=== PATIENT | male | born 1950 | race Caucasian/White ===

== ENCOUNTER 2020-05-07 07:24 | Inpatient (IN) ==
[2020-05-07] MEDS ORDERED: OPTIRAY 320 125ml IV PRN (07:41)
[2020-05-07] MEDS ORDERED: SODIUM CHLORIDE 0.9% 1000ML 1,000 ML IV SCH (07:45)
--- NOTE | 2020-05-07 07:53 | CT Scan Report ---
CT OF THE HEAD WITHOUT CONTRAST CLINICAL HISTORY: stroke alert COMPARISON STUDY: No previous studies for comparison. CT DOSE: 537.48 mGy.cm TECHNIQUE: Helical axial images of the head were obtained without IV contrast. Automated exposure con trol was utilized for the study. A dose lowering technique was utilized adhering to the principles o f ALARA. FINDINGS: No acute intracranial hemorrhage, midline shift or mass effect is present. The ventricular system is unremarkable. Note is made of a 1.6 cm hypodensity within the right internal capsule extend ing into the caudate nucleus. The basilar cisterns are patent. No extra-axial collections are present . There are no findings to suggest acute dural sinus thrombosis or acute territorial infarct. No sign ificant calvarial abnormalities are present. Visualized portions of the sinuses and mastoid air cells are clear. IMPRESSION: 1. No acute intracranial hemorrhage or mass effect. 2. 1.6 cm hypodensity within the right internal capsule extending into the caudate nucleus. This sugg ests an age indeterminate infarct. ACT 112: Negative or not required by law. Electronically signed by: Hong Kim M.D. 05/07/2020 7:51 AM
--- NOTE | 2020-05-07 07:58 | CT Scan Report ---
CTA ANGIOGRAPHY OF THE HEAD CLINICAL HISTORY: Stroke evaluation COMPARISON STUDY: No previous studies for comparison. TECHNIQUE: Helical axial images of the head were obtained following uneventful intravenous administr ation of Optiray 320. Sagittal and coronal reconstructions were viewed as well as maximal intensity p rojections on an independent 3-D workstation. Automated exposure control was utilized for the study. A dose lowering technique was utilized adhering to the principles of ALARA. CT DOSE: 580.85 mGy.cm FINDINGS: Please note that the CTA of the neck will be reported separately. No acute intracranial hem orrhage, midline shift or mass effect is present. Ventricular system is normal. The basilar cisterns are patent. There is an indeterminate 1.7 cm infarct within the right internal capsule extending into the caudate nucleus. The bilateral M1, M2, A1 and A2 segments are patent. The posterior circulation is intact. There is no intraluminal thrombus or abrupt vessel cutoff. There is no intracranial aneury sm. There is no dissection within the intracranial vessels. There is mild plaque within the bilateral cavernous carotids. IMPRESSION: 1. No intraluminal thrombus or abrupt vessel cutoff. No significant stenosis within the intracranial vessels. 2. Age indeterminate 1.7 cm infarct within the right internal capsule extending into the caudate nucl eus. ACT 112: Negative or not required by law. Electronically signed by: Hong Kim M.D. 05/07/2020 7:57 AM
--- NOTE | 2020-05-07 08:00 | CT Scan Report ---
CT angio neck with con CLINICAL HISTORY: 70 years-old Male with Stroke evaluation. Acute strokelike symptoms COMPARISON STUDY: CT head and CTA head of same day TECHNIQUE: Following the IV administration of Optiray 320, CT angiogram of the neck was performed fro m the aortic arch to the skull base. Images are reviewed in the axial, sagittal, and coronal planes. 3-D MIPS images are created and assessed. IV contrast was administered without complication. All nitish urements were calculated based on NASCET criteria. A dose lowering technique was utilized adhering t o the principles of ALARA. FINDINGS: The imaged opacified pulmonary artery is unremarkable. Mild to moderate mixed plaque the thoracic aor tic arch and proximal great vessels. The imaged portions of the bilateral subclavian arteries are pat ent. The innominate and common carotid arteries are also patent. Study is motion degraded which limit s the exam. Mild mixed plaque of the carotid bulbs and proximal internal carotid arteries results in less than 50% stenosis bilaterally. There is tortuosity noted involving the bilateral cervical segmen ts of the internal carotid arteries. The vertebral arteries are codominant. No aneurysm, dissection, high-grade stenosis or proximal branch occlusion. Mild multifocal luminal narrowing involves the vert ebral arteries. Lung apices are clear without pneumothorax. Soft tissues are unremarkable. Streak artifact from denta l amalgam hardware in its evaluation of the adjacent tissues. Multilevel degenerative changes of the cervical spine. No acute fracture. A large periapical cyst involves the right mandibular lateral inci sor and canine. IMPRESSION:Mildly motion degraded exam. CTA of the neck is unremarkable without aneurysm, dissection, high-grade stenosis or proximal branch occlusion. ACT 112: Negative or not required by law. The above report was generated using voice recognition software. It may contain grammatical, syntax o r spelling errors. Electronically signed by: Tanner Holland M.D. 05/07/2020 7:59 AM
[2020-05-07] MEDS ORDERED: ASPIRIN CHEW 324 MG PO STA (08:07)
[2020-05-07] MEDS ORDERED: CLOPIDOGREL BISULFATE 300 MG TAB PO STA (08:07)
[2020-05-07] MEDS ORDERED: ATORVASTATIN 10 MG TAB PO ONE (08:07)
[2020-05-07 08:17] LABS: Basophils # (auto) 0.02 K/uL (0-0.2); Basophils % (auto) 0.3 %; Eosinophils # (auto) 0.15 K/uL (0-0.5); Eosinophils % (auto) 2.1 %; Hematocrit (blood only) 42.9 % (42-52); Hemoglobin 14.5 g/dL (14.0-18.0); Immature Granulocytes # (auto) 0.02 K/uL (0.00-0.02); Immature Granulocytes % (auto) 0.3 %; Lymphocytes # (auto) 1.45 K/uL (1.2-3.4); Lymphocytes % (auto) 19.8 %; Mean Corpuscular Hgb Conc 33.8 g/dL (32-36); Mean Corpuscular Volume 88.6 fL (80-100); Mean Platelet Volume 9.9 fL (7.4-10.4); Monocytes # (auto) 0.49 K/uL (0.11-0.59); Monocytes % (auto) 6.7 %; Neutrophils # (auto) 5.18 K/uL (1.4-6.5); Neutrophils % (auto) 70.8 %; Platelet Count 303 K/uL (130-400); RDW Coefficient of Variation 13.1 % (11.5-14.5); RDW Standard Deviation 42.6 fL (36.4-46.3); Red Blood Count 4.84 M/uL (4.7-6.1); White Blood Count 7.31 K/uL (4.8-10.8)
--- NOTE | 2020-05-07 08:24 | Emergency Department Note ---
History of Present Illness General Chief complaint: Stroke Alert Stated complaint: TROUBLE TALKING AND SMILING,HEADACHES Time Seen by Provider: 05/07/20 07:37 Source: patient and RN notes reviewed Mode of arrival: ambulatory Limitations: no limitations History of Present Illness Provider complaint: Facial droop, speech difficulty, LUE weakness This pt is a 70 yo male who presents to the emergency department with complaints of strokelike symptoms. Patient states he went to bed at 8 PM last night and woke up to the Opiatalk at 930. At 2 AM, the patient woke up with the realization that his right arm was "floppy and hanging over the side of the bed." The patient went back to bed at that time. He woke up this morning at approximately 7 AM with the realization that the left side of the face was flattened and he had some subtle speech difficulty. Patient denies any medical history of stroke but states he does take lisinopril daily. He recently moved to the area from [place] in December. Patient does admit to a recent "sinus infection" that he has been attempting to treat for the last several weeks with [id number] remedies. When the patient woke up at 2 AM, he also noticed that his sinus symptoms had resolved. He denies any fevers, chills, headache, visual changes, chest pain or shortness of breath. Home Medications Home Medications Medication Instructions Recorded Confirmed Type cholecalciferol (vitamin D3) 50 mcg PO Q OTHER DAY 05/07/20 05/07/20 History [Vitamin D3] ibuprofen [Advil] 200 mg PO Q6H PRN 05/07/20 05/07/20 History lisinopril 5 mg PO QAM 05/07/20 05/07/20 History Allergies Allergy/AdvReac Type Severity Reaction Status Date / Time No Known Allergies Allergy Unverified 05/07/20 08:27 Past Med/Surg History Medical History Hypertension Social History Preferred Language: Occitan Communication Ability: Effective Environmental Specialist Required: No Beliefs That Will Affect Care: None Current Living Situation: Spouse current occupational status: retired Other Information That Helps Us Care for You: No Feels Safe at Home: Yes Safety Concerns: Feels Safe At This Time Smoking Status: Former smoker Hx Alcohol Use: Yes Alcohol type: wine Alcohol type Comment: 2 glasses Alcohol Intake Frequency: Daily Hx Substance Use: No Review of Systems See HPI for pertinent positives & negatives. and A total of 10 systems reviewed and were otherwise negative Physical Exam Vital Signs Vital Signs - 24 hr 05/07/20 07:30 05/07/20 08:00 05/07/20 08:32 Temperature 36.8 C Temperature Source Oral Pulse Rate 84 Pulse Rate [Apical] 90 79 Respiratory Rate 18 18 18 Blood Pressure 142/89 H Blood Pressure [Left Arm] 162/83 H 158/88 H Blood Pressure Mean 106 Blood Pressure Mean [Left Arm] 109 111 Pulse Oximetry 98 99 98 Oxygen Delivery Method Room Air Room Air Room Air Sepsis Recent Fever Within 48 Hours No Sepsis New/Unexplained Change in Mental Status No Sepsis Action Taken by Nursing No Action Required 05/07/20 09:06 Temperature Temperature Source Pulse Rate Pulse Rate [Apical] 91 H Respiratory Rate 18 Blood Pressure Blood Pressure [Left Arm] 156/84 H Blood Pressure Mean Blood Pressure Mean [Left Arm] 108 Pulse Oximetry 99 Oxygen Delivery Method Room Air Sepsis Recent Fever Within 48 Hours Sepsis New/Unexplained Change in Mental Status Sepsis Action Taken by Nursing Vital signs reviewed. General: Well-appearing 70-year-old male, in no significant distress. HEENT: No scleral icterus, PERRLA, neck supple. Atraumatic. Cardiovascular: Regular rate and rhythm, no extra sounds. Pulmonary: Clear to auscultation bilaterally, normal work of breathing. Abdomen: Soft, nontender, nondistended, positive bowel sounds. Musculoskeletal: Atraumatic, no peripheral edema. Neurologic: Patient awake alert and oriented x 3, full strength in all 4 extremities. Very subtle flattening of the left nasolabial fold and left eye. Intact [id number], no pronator drift Skin: Warm, dry, no rash Course Administered Medications Sodium Chloride (Nss 1000ml) 1,000 mls @ 50 mls/hr IV .Q20H TAMIKO Stop: 06/06/20 07:44 Last Admin: 05/07/20 08:03 Dose: 50 mls/hr Documented by: [id number] Ioversol (Optiray 320 125ml) 120 ml IV ONCE PRN PRN Reason: Interaction Checking Stop: 05/11/20 07:40 Last Admin: 05/07/20 07:42 Dose: 120 ml Documented by: [id number] Discontinued Medications Aspirin (Aspirin) 324 mg PO NOW STA Stop: 05/07/20 08:08 Last Admin: 05/07/20 08:14 Dose: 324 mg Documented by: [id number] Atorvastatin Calcium (Lipitor) 10 mg PO NOW ONE Stop: 05/07/20 08:08 Last Admin: 05/07/20 08:20 Dose: 10 mg Documented by: [id number] Clopidogrel Bisulfate (Plavix) 300 mg PO NOW STA Stop: 05/07/20 08:08 Last Admin: 05/07/20 08:14 Dose: 300 mg Documented by: [id number] Medical Decision Making Differential Diagnosis Differential includes acute coronary syndrome, myocardial infarction, CVA, TIA, anemia, infection, pneumonia, UTI, pyelonephritis, poor nutrition, dehydration, electrolyte disturbance,hypoglycemia. Home Medications Current Medication List: was personally reviewed by me Laboratory Data Attestation: I reviewed the patient's lab results. Result diagrams: 05/07/20 08:08 05/07/20 08:08 Lab Results 05/07/20 05/07/20 05/07/20 Range/Units 08:08 08:08 08:08 WBC 7.31 (4.8-10.8) K/uL RBC 4.84 (4.7-6.1) M/uL Hgb 14.5 (14.0-18.0) g/dL Hct 42.9 (42-52) % MCV 88.6 (80-100) fL MCH 30.0 (25-34) pg MCHC 33.8 (32-36) g/dL RDW Std Deviation 42.6 (36.4-46.3) fL RDW Coeff of Annemarie 13.1 (11.5-14.5) % Plt Count 303 (130-400) K/uL MPV 9.9 (7.4-10.4) fL Immature Gran % (Auto) 0.3 % Neut % (Auto) 70.8 % Lymph % (Auto) 19.8 % Richardson % (Auto) 6.7 % Eos % (Auto) 2.1 % Baso % (Auto) 0.3 % Neut # (Auto) 5.18 (1.4-6.5) K/uL Lymph # (Auto) 1.45 (1.2-3.4) K/uL Richardson # (Auto) 0.49 (0.11-0.59) K/uL Eos # (Auto) 0.15 (0-0.5) K/uL Baso # (Auto) 0.02 (0-0.2) K/uL Immature Gran # (Auto) 0.02 (0.00-0.02) K/uL PT 11.4 (9.0-12.0) Seconds INR 1.1 (0.9-1.1) APTT 34.4 H (21.0-31.0) Seconds PTT Ratio 1.2 Sodium 134 L (136-145) mmol/L Potassium 4.2 (3.5-5.1) mmol/L Chloride 103 (98-107) mmol/L Carbon Dioxide 24 (21-32) mmol/L Anion Gap 7.0 (3-11) BUN 15 (7-18) mg/dl Creatinine 1.09 (0.6-1.4) mg/dl Est Cr Clr Drug Dosing 59.8 ml/min Est GFR ( Amer) 79.8 Est GFR (Non-Af Amer) 68.9 BUN/Creatinine Ratio 14.0 (10-20) Glucose 110 H (70-99) mg/dl Calcium 9.1 (8.5-10.1) mg/dl Magnesium 2.1 (1.8-2.4) mg/dl Total Bilirubin 0.5 (0.2-1) mg/dl AST 12 L (15-37) U/L ALT 18 (12-78) U/L Alkaline Phosphatase 87 (45-117) U/L Troponin I < 0.015 (0-0.045) ng/ml Total Protein 7.2 (6.4-8.2) gm/dl Albumin 3.4 (3.4-5.0) gm/dl Globulin 3.8 (2.5-4.0) gm/dl Albumin/Globulin Ratio 0.9 (0.9-2) Triglycerides (0-150) mg/dl Cholesterol (0-200) mg/dl LDL Cholesterol, Calc mg/dl VLDL Cholesterol, Calc mg/dl HDL Cholesterol mg/dl Cholesterol/HDL Ratio TSH (0.300-4.500) uIu/ml COVID-19 PCR (Negative) 05/07/20 05/07/20 Range/Units 08:08 08:45 WBC (4.8-10.8) K/uL RBC (4.7-6.1) M/uL Hgb (14.0-18.0) g/dL Hct (42-52) % MCV (80-100) fL MCH (25-34) pg MCHC (32-36) g/dL RDW Std Deviation (36.4-46.3) fL RDW Coeff of Annemarie (11.5-14.5) % Plt Count (130-400) K/uL MPV (7.4-10.4) fL Immature Gran % (Auto) % Neut % (Auto) % Lymph % (Auto) % Richardson % (Auto) % Eos % (Auto) % Baso % (Auto) % Neut # (Auto) (1.4-6.5) K/uL Lymph # (Auto) (1.2-3.4) K/uL Richardson # (Auto) (0.11-0.59) K/uL Eos # (Auto) (0-0.5) K/uL Baso # (Auto) (0-0.2) K/uL Immature Gran # (Auto) (0.00-0.02) K/uL PT (9.0-12.0) Seconds INR (0.9-1.1) APTT (21.0-31.0) Seconds PTT Ratio Sodium (136-145) mmol/L Potassium (3.5-5.1) mmol/L Chloride (98-107) mmol/L Carbon Dioxide (21-32) mmol/L Anion Gap (3-11) BUN (7-18) mg/dl Creatinine (0.6-1.4) mg/dl Est Cr Clr Drug Dosing ml/min Est GFR ( Amer) Est GFR (Non-Af Amer) BUN/Creatinine Ratio (10-20) Glucose (70-99) mg/dl Calcium (8.5-10.1) mg/dl Magnesium (1.8-2.4) mg/dl Total Bilirubin (0.2-1) mg/dl AST (15-37) U/L ALT (12-78) U/L Alkaline Phosphatase (45-117) U/L Troponin I (0-0.045) ng/ml Total Protein (6.4-8.2) gm/dl Albumin (3.4-5.0) gm/dl Globulin (2.5-4.0) gm/dl Albumin/Globulin Ratio (0.9-2) Triglycerides 92 (0-150) mg/dl Cholesterol 166 (0-200) mg/dl LDL Cholesterol, Calc 99 mg/dl VLDL Cholesterol, Calc 18 mg/dl HDL Cholesterol 49 mg/dl Cholesterol/HDL Ratio 3 TSH 1.430 (0.300-4.500) uIu/ml COVID-19 PCR NEGATIVE (Negative) Imaging Data Radiologist's Impression: CT OF THE HEAD WITHOUT CONTRAST CLINICAL HISTORY: stroke alert COMPARISON STUDY: No previous studies for comparison. CT DOSE: 537.48 mGy.cm TECHNIQUE: Helical axial images of the head were obtained without IV contrast. Automated exposure control was utilized for the study. A dose lowering technique was utilized adhering to the principles of ALARA. FINDINGS: No acute intracranial hemorrhage, midline shift or mass effect is present. The ventricular system is unremarkable. Note is made of a 1.6 cm hypodensity within the right internal capsule extending into the caudate nucleus. The basilar cisterns are patent. No extra-axial collections are present. There are no findings to suggest acute dural sinus thrombosis or acute territorial infarct. No significant calvarial abnormalities are present. Visualized portions of the sinuses and mastoid air cells are clear. IMPRESSION: 1. No acute intracranial hemorrhage or mass effect. 2. 1.6 cm hypodensity within the right internal capsule extending into the caudate nucleus. This suggests an age indeterminate infarct. ACT 112: Negative or not required by law. Electronically signed by: Hong Kim M.D. 05/07/2020 7:51 AM Dictated: 05/07/20 0748 Transcribed: 05/07/2048 XR chest 1V portable CLINICAL HISTORY: stroke COMPARISON STUDY: No previous studies for comparison. FINDINGS: Lung volumes are normal. Lungs are clear. There is no pneumothorax or pleural effusion. Cardiac size is at the upper limits of normal. Mediastinal contours are normal. There is no evidence for pulmonary edema. IMPRESSION: No acute cardiopulmonary findings. ACT 112: Negative or not required by law. Electronically signed by: Hong Kim M.D. 05/07/2020 8:28 AM Dictated: 05/07/2027 Transcribed: 05/07/20826 CTA ANGIOGRAPHY OF THE HEAD CLINICAL HISTORY: Stroke evaluation COMPARISON STUDY: No previous studies for comparison. TECHNIQUE: Helical axial images of the head were obtained following uneventful intravenous administration of Optiray 320. Sagittal and coronal reconstructions were viewed as well as maximal intensity projections on an independent 3-D workstation. Automated exposure control was utilized for the study. A dose lowering technique was utilized adhering to the principles of ALARA. CT DOSE: 580.85 mGy.cm FINDINGS: Please note that the CTA of the neck will be reported separately. No acute intracranial hemorrhage, midline shift or mass effect is present. Ventricular system is normal. The basilar cisterns are patent. There is an indeterminate 1.7 cm infarct within the right internal capsule extending into the caudate nucleus. The bilateral M1, M2, A1 and A2 segments are patent. The posterior circulation is intact. There is no intraluminal thrombus or abrupt vessel cutoff. There is no intracranial aneurysm. There is no dissection within the intracranial vessels. There is mild plaque within the bilateral cavernous carotids. IMPRESSION: 1. No intraluminal thrombus or abrupt vessel cutoff. No significant stenosis within the intracranial vessels. 2. Age indeterminate 1.7 cm infarct within the right internal capsule extending into the caudate nucleus. ACT 112: Negative or not required by law. Electronically signed by: Hong Kim M.D. 05/07/2020 7:57 AM Dictated: 05/07/20 0753 Transcribed: 05/07/[address] angio neck with con CLINICAL HISTORY: 70 years-old Male with Stroke evaluation. Acute strokelike symptoms COMPARISON STUDY: CT head and CTA head of same day TECHNIQUE: Following the IV administration of Optiray 320, CT angiogram of the neck was performed from the aortic arch to the skull base. Images are reviewed in the axial, sagittal, and coronal planes. 3-D MIPS images are created and assessed. IV contrast was administered without complication. All measurements were calculated based on NASCET criteria. A dose lowering technique was utilized adhering to the principles of ALARA. FINDINGS: The imaged opacified pulmonary artery is unremarkable. Mild to moderate mixed plaque the thoracic aortic arch and proximal great vessels. The imaged portions of the bilateral subclavian arteries are patent. The innominate and common carotid arteries are also patent. Study is motion degraded which limits the exam. Mild mixed plaque of the carotid bulbs and proximal internal carotid arteries results in less than 50% stenosis bilaterally. There is tortuosity noted involving the bilateral cervical segments of the internal carotid arterie s. The vertebral arteries are codominant. No aneurysm, dissection, high-grade stenosis or proximal branch occlusion. Mild multifocal luminal narrowing involves the vertebral arteries. Lung apices are clear without pneumothorax. Soft tissues are unremarkable. Streak artifact from dental amalgam hardware in its evaluation of the adjacent tissues. Multilevel degenerative changes of the cervical spine. No acute fracture. A large periapical cyst involves the right mandibular lateral incisor and canine. IMPRESSION:Mildly motion degraded exam. CTA of the neck is unremarkable without aneurysm, dissection, high-grade stenosis or proximal branch occlusion. ACT 112: Negative or not required by law. The above report was generated using voice recognition software. It may contain grammatical, syntax or spelling errors. Electronically signed by: Tanner Holland M.D. 05/07/2020 7:59 AM Dictated: 05/07/20 0754 Transcribed: 05/07/20 075 ECG Data Attestation: I personally reviewed and interpreted this ECG as follows: Indication: + other (Stroke symptoms) Rate (beats per minute): 93 Rhythm: + normal sinus ECG Intervals/blocks: + Normal QRS and + Normal QT-c ECG ST segments: no T-wave inversions (Nonspecific T wave abnormality.) Blood Pressure Blood Pressure Findings: Normal blood pressure Blood Pressure Disposition: did not require urgent referral MDM Narrative This patient was evaluated and appeared to be in no significant distress. Physical examination is fairly reassuring. Patient's mild symptoms improved quickly after my initial evaluation. Patient was sent for CT/CTA immediately upon arrival to the emergency department. There is evidence of a 1.7 cm right internal capsule infarct. IV access was obtained and laboratory work was drawn. Case was discussed with stroke tele-neurologist at [facility], Dr. Wray. He felt the patient was out of the window for even extended therapy. As his symptoms are mild and seemingly improving there is no indication for TPA at this time. He did recommend dual platelet therapy and a statin. Patient was given a full-strength aspirin, p.o. Plavix load of 300 mg in addition to 10 mg of p.o. Lipitor. I did discuss the findings and plan with the patient and his daughter who is at the bedside. Patient will be evaluated by Dr. Loja of the hospitalist service for further evaluation and management. Dr. Loja has requested a rapid COVID swab and has cleared it with Dr. Carpio/the lab. The study was ordered. Impression & Plan Stroke Discharge Plan Visit Data *Final* Discharge Date/Time: 05/07/20 10:11 Chief Complaint: Stroke Alert Stated Complaint: TROUBLE TALKING AND SMILING,HEADACHES Other Complaint: Cardiac Assessment ED Provider: Naheed Leslie Discharge Problem: Stroke Patient Disposition: Admitted As Inpatient Discharge Instructions Interventions: ED Discharge Assessment Last Done: 05/07/20 10:11 Discharge Problem: Stroke Qualifiers: CVA mechanism: other Qualified Code(s): I63.89 - Other cerebral infarction
--- NOTE | 2020-05-07 08:29 | XRay Report ---
XR chest 1V portable CLINICAL HISTORY: stroke COMPARISON STUDY: No previous studies for comparison. FINDINGS: Lung volumes are normal. Lungs are clear. There is no pneumothorax or pleural effusion. Car diac size is at the upper limits of normal. Mediastinal contours are normal. There is no evidence for pulmonary edema. IMPRESSION: No acute cardiopulmonary findings. ACT 112: Negative or not required by law. Electronically signed by: Hong Kim M.D. 05/07/2020 8:28 AM
[2020-05-07 08:34] LABS: Alanine Aminotransferase 18 U/L (12-78); Albumin Level 3.4 gm/dl (3.4-5.0); Aspartate Aminotransferase 12 U/L (15-37); Blood Urea Nitrogen 15 mg/dl (7-18); Calcium 9.1 mg/dl (8.5-10.1); Carbon Dioxide 24 mmol/L (21-32); Chloride 103 mmol/L (98-107); Creatinine Clr Calc Pharmacy 59.8 ml/min; Est GFR (African American) 79.8; Est GFR (Non-African American) 68.9; Glucose 110 mg/dl (70-99); INR 1.1 (0.9-1.1); Magnesium 2.1 mg/dl (1.8-2.4); Partial Thromboplastin Ratio 1.2; Partial Thromboplastin Time 34.4 Seconds (21.0-31.0); Potassium 4.2 mmol/L (3.5-5.1); Prothrombin Time 11.4 Seconds (9.0-12.0); Sodium 134 mmol/L (136-145)
[2020-05-07 08:39] LABS: Albumin Globulin Ratio 0.9 (0.9-2); Alkaline Phosphatase 87 U/L (45-117); Bilirubin,Total 0.5 mg/dl (0.2-1); Globulin 3.8 gm/dl (2.5-4.0); Total Protein 7.2 gm/dl (6.4-8.2); Troponin I < 0.015 ng/ml (0-0.045)
--- NOTE | 2020-05-07 09:46 | History & Physical Report ---
Date of Service May 07, 2020 Assessment & Plan (1) Stroke: Risk factors for stroke include HTN, age. He also took Advil with a decongestant in it-perhaps he had vasoconstriction from the decongestant. CT angiogram of the head and neck are negative upon admission. CT with a 1.6 cm hypodensity within the right internal capsule extending to the caudate nucleus suggestive of an age-indeterminate infarct. * Admit PCU * Neurochecks * Neurology consulted * PT/OT/Speech * Initiated on lipitor 10mg but will continue with 40mg daily * NPO until passes dysphagia screening --> then AHA diet * Lipid panel * A1c * Loaded with plavix 300mg, ASA 324mg in ER --> Continue DAPT with ASA 81mg, Plavix 75mg daily * ECHO with bubble * Serial troponins * MRI Brain pending * Added IVF NS @ 125cc/hr to allow for permissive HTN * Holding home lisinopril 5mg daily as well as home ibuprofen * TSH pending * Recommend long-term cardiac event monitoring if no arrhythmias noted on telemetry (2) Hypertension: * Chronic. Has been on lisinopril 5mg PO daily as outpatient -- held to allow for permissive HTN * Up to 162/83 on admission but currently 135/93 -- IVF as above * Continue to monitor (3) Hyponatremia: * Mildly low at 134 * Start IV fluids with normal saline * Follow BMP in the morning (4) Sinus pressure: * Noted for the last 2 weeks. Question could be allergy related. His symptoms completely resolved last night he noticed after taking Advil with decongestant in it. Unfortunately, perhaps this contributed to his stroke as above. The visualized portions of the sinuses do not show any evidence of sinusitis * Advised no further decongestants * Trial of Flonase * If symptoms return, consider CT of the sinuses (5) DVT prophylaxis: * ASA, Plavix * SCDs Dispo: from home, lives with . To complete stroke work-up and continue on high-dose statin, DAPT at discharge unless otherwise recommended by Neurology History of Present Illness Chief Complaint: Left Facial Droop, Slurred Speech, Left Arm Weakness Primary Care Provider: NO PCP 70 white male with PMHx significant for HTN on lisinopril presented to the emergency department with complaints of left facial droop, slurred speech and l eft arm weakness. He states that he recently moved to [place] from [place] on Dec 17, 2019 to be closer to family and for help with his who has been suffering from dementia for the past five years and has yet to be set up with a PCP locally secondary to current pandemic. He states that he had been feeling dizzy and light headed a week ago with associated headache/sinus pressure which he thought might be related to seasonal allergies and was going to call medical provider early next week. He states that he had checked his blood pressure at home and it was in the 130-140s systolically and 80-90s diastolically. He has had yearly check ups in [place] for lipid panels and is not on a statin currently. His daughter stated that patient was supposed to have company over but was not f eeling up to it which was unusual. Patient states he went to bed as usual after he took an Advil product with a decongestant and when he woke up in the night he noticed his left arm hanging off the side of the bed but went back to sleep. He states when he woke up in the morning he noted left sided facial droop and patient and daughter state that he had difficulty with speech, slurring words. He notes that he did have some difficulty with speech the night before as well. He notes associated right jaw pain and possible swollen lymph nodes (history of lymph node removal in neck but denies cancer or tx for such). Speech has now returned to baseline but still with facial droop. Denies any difficulty swallowing or headache at this current time. Denies blurred vision, palpitations, history of afib, clotting/bleeding disorders. States he was a pretty active individual and golfed and exercised several days a week in [place] but does more light activity with his since moving her but does admit to some hiking last week at [place] and [facility]. Denies decreased exercise tolerance, shortness of breath, palpitations, abdominal pain, n/v/d, dysuria at this time. No known concerns for COVID-19 at this time or known exposure. Had previously been Strong family history for heart disease and stroke but not DM. Previous smoker but quit in 1972. Drinks 1-2 glasses of wine per night. ER Course: CBC unremarkable. BMP with slightly low sodium, 134. K 4.2. BUN 15. Cr 1.09. Glucose 110. Trop <0.015. INR 1.1. PTT 34.3 CT Head with 1.6 cm hypodensity R internal capsule extending into caudate nucleus, age inf infarct. CTA Head/Neck with age ind 1.7m infarct, no intraluminal thrombus or cutoff. No evidence for aneurysm, dissection or high- grade stenosis. EKG NSR 93bpm with non-specific T wave abnormality. Telestroke cart with recommendations to load with ASA, Plavix and to continue on DAPT and to continue with rest of stroke work-up. Allergies Allergy/AdvReac Type Severity Reaction Status Date / Time No Known Allergies Allergy Unverified 05/07/20 08:27 Home Medications Home Medications Medication Instructions Recorded Confirmed Type cholecalciferol (vitamin D3) 50 mcg PO Q OTHER DAY 05/07/20 05/07/20 History [Vitamin D3] ibuprofen [Advil] 200 mg PO Q6H PRN 05/07/20 05/07/20 History lisinopril 5 mg PO QAM 05/07/20 05/07/20 History Past Med/Surg History Medical History Hypertension Family History (Updated 05/07/20 @ 13:26 by Raven Krishnamurthy PA-C) Mother Stroke Heart disease s/p pacemaker for arrhythmia Uncle Heart disease [place] at age 57 Cerebral palsy Brother Heart disease Passed out in his 60s, coded. On list for transplant. 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 [employer], also was a submariner in the [employer] Other Information That Helps Us Care for You: No Feels Safe at Home: Yes Safety Concerns: Feels Safe At This Time Smoking Status: Former smoker Hx Alcohol Use: Yes Alcohol type: wine Alcohol type Comment: 2 glasses Alcohol Intake Frequency: Daily Hx Substance Use: No Review of Systems Review of Systems: All systems reviewed & are unremarkable except as noted in HPI & below Constitutional: + chills; no fever Eyes: no diplopia and no spots in vision Ear, Nose, Mouth, Throat: no dysphagia sinus pressure, headache Respiratory: no cough, no change in sputum and no dyspnea Cardiovascular: no chest pain, no palpitations and no edema Additional Comments: R jaw pain, swollen lymph node R jaw Gastrointestinal: no abdominal pain, no nausea and no vomiting Genitourinary: no dysuria and no urinary frequency Musculoskeletal: no back pain and no problem reported Integumentary: no rash and no lesions Neurologic: + unsteadiness; no falls Psychiatric: no depression and no hopelessness Endocrine: no cold intolerance and no heat intolerance Hematologic / Lymphatic: no easy bleeding and no easy bruising Allergy / Immunological: no cough and no dyspnea Physical Exam Constitutional: WD/WN, vitals as above no acute distress Eyes: PERRL, conjunctivae normal, anicteric sclerae ENMT: L facial droop Neck: trachea midline, no thyromegaly Respiratory: normal respiratory effort, lungs clear to auscultation Cardiovascular: RRR, no murmur, no edema Gastrointestinal (Abdomen): normal bowel sounds, soft, nontender, no hepatosplenomegaly Musculoskeletal: no cyanosis or clubbing, extremities motor strength 5/5 Skin: no rashes, warm and dry Neurologic: patellar DTR's 2+ bilat, sensation intact L facial droop slowed rapid alternating movements and with finger to nose testing Psychiatric: A+Ox3, euthymic affect Lymphatic: L anterior lymph node slightly swollen, non-tender on palpation Results & Data Results & Data ([facility]) Vital Signs (Past 12 Hours) Vital Signs Temp Pulse Pulse Resp BP BP Pulse Ox 05/07/20 09:06 91 H 18 156/84 H 99 05/07/20 08:32 79 18 158/88 H 98 05/07/20 08:00 90 18 162/83 H 99 05/07/20 07:30 36.8 C 84 18 142/89 H 98 Laboratory Results 05/07/20 05/07/20 05/07/20 Range/Units 08:45 08:08 08:08 WBC (4.8-10.8) K/uL RBC (4.7-6.1) M/uL Hgb (14.0-18.0) g/dL Hct (42-52) % MCV (80-100) fL MCH (25-34) pg MCHC (32-36) g/dL RDW Std Deviation (36.4-46.3) fL RDW Coeff of Annemarie (11.5-14.5) % Plt Count (130-400) K/uL MPV (7.4-10.4) fL Immature Gran % (Auto) % Neut % (Auto) % Lymph % (Auto) % [place] % (Auto) % Eos % (Auto) % Baso % (Auto) % Neut # (Auto) (1.4-6.5) K/uL Lymph # (Auto) (1.2-3.4) K/uL [place] # (Auto) (0.11-0.59) K/uL Eos # (Auto) (0-0.5) K/uL Baso # (Auto) (0-0.2) K/uL Immature Gran # (Auto) (0.00-0.02) K/uL PT (9.0-12.0) Seconds INR (0.9-1.1) APTT (21.0-31.0) Seconds PTT Ratio Sodium (136-145) mmol/L Potassium (3.5-5.1) mmol/L Chloride (98-107) mmol/L Carbon Dioxide (21-32) mmol/L Anion Gap (3-11) BUN (7-18) mg/dl Creatinine (0.6-1.4) mg/dl Est Cr Clr Drug Dosing ml/min Est GFR ( Amer) Est GFR (Non-Af Amer) BUN/Creatinine Ratio (10-20) Glucose (70-99) mg/dl Estimat Average Glucose Pending Hemoglobin A1c Pending Calcium (8.5-10.1) mg/dl Magnesium (1.8-2.4) mg/dl Total Bilirubin (0.2-1) mg/dl AST (15-37) U/L ALT (12-78) U/L Alkaline Phosphatase (45-117) U/L Troponin I (0-0.045) ng/ml Total Protein (6.4-8.2) gm/dl Albumin (3.4-5.0) gm/dl Globulin (2.5-4.0) gm/dl Albumin/Globulin Ratio (0.9-2) Triglycerides 92 (0-150) mg/dl Cholesterol 166 (0-200) mg/dl LDL Cholesterol, Calc 99 mg/dl VLDL Cholesterol, Calc 18 mg/dl HDL Cholesterol 49 mg/dl Cholesterol/HDL Ratio 3 TSH 1.430 (0.300-4.500) uIu/ml COVID-19 PCR NEGATIVE (Negative) 05/07/20 05/07/20 05/07/20 Range/Units 08:08 08:08 08:08 WBC 7.31 (4.8-10.8) K/uL RBC 4.84 (4.7-6.1) M/uL Hgb 14.5 (14.0-18.0) g/dL Hct 42.9 (42-52) % MCV 88.6 (80-100) fL MCH 30.0 (25-34) pg MCHC 33.8 (32-36) g/dL RDW Std Deviation 42.6 (36.4-46.3) fL RDW Coeff of Annemarie 13.1 (11.5-14.5) % Plt Count 303 (130-400) K/uL MPV 9.9 (7.4-10.4) fL Immature Gran % (Auto) 0.3 % Neut % (Auto) 70.8 % Lymph % (Auto) 19.8 % [place] % (Auto) 6.7 % Eos % (Auto) 2.1 % Baso % (Auto) 0.3 % Neut # (Auto) 5.18 (1.4-6.5) K/uL Lymph # (Auto) 1.45 (1.2-3.4) K/uL [place] # (Auto) 0.49 (0.11-0.59) K/uL Eos # (Auto) 0.15 (0-0.5) K/uL Baso # (Auto) 0.02 (0-0.2) K/uL Immature Gran # (Auto) 0.02 (0.00-0.02) K/uL PT 11.4 (9.0-12.0) Seconds INR 1.1 (0.9-1.1) APTT 34.4 H (21.0-31.0) Seconds PTT Ratio 1.2 Sodium 134 L (136-145) mmol/L Potassium 4.2 (3.5-5.1) mmol/L Chloride 103 (98-107) mmol/L Carbon Dioxide 24 (21-32) mmol/L Anion Gap 7.0 (3-11) BUN 15 (7-18) mg/dl Creatinine 1.09 (0.6-1.4) mg/dl Est Cr Clr Drug Dosing 59.8 ml/min Est GFR ( Amer) 79.8 Est GFR (Non-Af Amer) 68.9 BUN/Creatinine Ratio 14.0 (10-20) Glucose 110 H (70-99) mg/dl Estimat Average Glucose Hemoglobin A1c Calcium 9.1 (8.5-10.1) mg/dl Magnesium 2.1 (1.8-2.4) mg/dl Total Bilirubin 0.5 (0.2-1) mg/dl AST 12 L (15-37) U/L ALT 18 (12-78) U/L Alkaline Phosphatase 87 (45-117) U/L Troponin I < 0.015 (0-0.045) ng/ml Total Protein 7.2 (6.4-8.2) gm/dl Albumin 3.4 (3.4-5.0) gm/dl Globulin 3.8 (2.5-4.0) gm/dl Albumin/Globulin Ratio 0.9 (0.9-2) Triglycerides (0-150) mg/dl Cholesterol (0-200) mg/dl LDL Cholesterol, Calc mg/dl VLDL Cholesterol, Calc mg/dl HDL Cholesterol mg/dl Cholesterol/HDL Ratio TSH (0.300-4.500) uIu/ml COVID-19 PCR (Negative) Diagnostic Findings CT Head w/o IMPRESSION: 1. No acute intracranial hemorrhage or mass effect. 2. 1.6 cm hypodensity within the right internal capsule extending into the caudate nucleus. This suggests an age indeterminate infarct. Head/Neck CTA IMPRESSION: 1. No intraluminal thrombus or abrupt vessel cutoff. No significant stenosis within the intracranial vessels. 2. Age indeterminate 1.7 cm infarct within the right internal capsule extending into the caudate nucleus. IMPRESSION:Mildly motion degraded exam. CTA of the neck is unremarkable without aneurysm, dissection, high-grade stenosis or proximal branch occlusion. CXR IMPRESSION: No acute cardiopulmonary findings. ECG Indication: other (stroke) Rate (beats per minute): 93 Rhythm: normal sinus Findings: + nonspecific-ST abn Supervising Physician Co-Signing Physician Notes PA Supervision Note: I personally saw and examined the patient. I verified all bey points and agree with DEL Krishnamurthy with the following exceptions and/or additions: This patient is a very pleasant 70-year-old male with a history of HTN and recent sinus pressure who moved here from [place], [place] approximately 4 months ago. He presents with acute onset overnight of slurred speech, left-sided facial droop, and perhaps weakness in the left upper extremity. He did take Advil with a decongestant in it last night prior to the onset of this stroke symptoms. Found to have probable age-indeterminate stroke as noted above on CT scan of the head without contrast. No acute occlusions seen on CT angiogram of the head neck. His blood pressure is mildly elevated on admission. He is in normal sinus rhythm on ECG Laboratory values were reviewed and are fairly normal. COVID testing was performed and was negative in the ER. History and ROS reviewed as above He is very active and generally quite healthy. No recent fevers. Vitals reviewed Gen: AAOx3, NAD HEENT: Anicteric sclerae, EOMI, PERRLA CV: RRR no mgr nl S1S2 Pulm: CTAB no wcr Abd: +BS soft NT ND no masses or hernias Ext: No edema, 2+ DP pulses Skin: No rashes, warm/dry Neuro: CN II through XII intact except slight weakness in left cranial nerve VII and also with deviation of tongue to the left, full strength throughout upper and lower extremities, sensation intact light touch throughout upper and lower extremities, DTRs 2+ throughout upper and lower extremities Laboratory values and radiology images reviewed personally 70-year-old male with history of HTN, here with new onset ischemic stroke. -Admit and check brain MRI, neurochecks, neurology consult -Continue DAPT and start high intensity statin -Check lipid panel, hemoglobin A1c Permissive hypertension -Avoid decongestants and vasoconstrictors -Would recommend long-term cardiac event monitoring if no arrhythmias noted during this hospital stay PT/OT/speech therapy consults -Trial of Flonase for sinus pressure and consider CT of the sinuses if not improving. I do not believe the sinus pressure prior to the stroke was related to the stroke, but most likely allergic rhinosinusitis as he is new to this region from [place]. PG Care Time/CCT Total # of Minutes Spent Total Time Spent with Patient: Total time spent is greater than 50% in coordination of care (as documented) at patient's floor/unit and/or counseling patient: Coding Level of Care Code 88903 Initial Inpt Care Lvl 3 Diagnoses Stroke I63.9 Hypertension I10 Hyponatremia E87.1 Sinus pressure J34.89 DVT prophylaxis Z29.9
[2020-05-07] MEDS ORDERED: ACETAMINOPHEN 325 MG TAB PO PRN (10:46)
[2020-05-07] MEDS ORDERED: POLYETHYLENE (MIRALAX) 17 GM PACK PO PRN (10:46)
[2020-05-07] MEDS ORDERED: MAGNESIUM HYDROXIDE SUSP 30 ML UDC PO PRN (10:46)
[2020-05-07] MEDS ORDERED: ONDANSETRON INJ 2 MG/ML 2 ML VIAL IV PRN (10:46)
[2020-05-07] MEDS ORDERED: ALUMINUM/MAGNESIUM SUSP 30 ML UDC PO PRN (10:46)
[2020-05-07] MEDS ORDERED: NITROGLYCERIN SL 0.4 MG/TAB TAB SL PRN (10:46)
[2020-05-07 11:31] LABS: Thyroid Stimulating Hormone 1.43 uIu/ml (0.300-4.500)
--- NOTE | 2020-05-07 12:20 | Electrocardiogram Report ---
Test Reason : Blood Pressure : / mmHG Vent. Rate : 093 BPM Atrial Rate : 093 BPM P-R Int : 148 ms QRS Dur : 076 ms QT Int : 354 ms P-R-T Axes : 059 014 042 degrees QTc Int : 440 ms Normal sinus rhythm Nonspecific T wave abnormality Abnormal ECG No previous ECGs available Confirmed by Steven Campblel ([id number]) on 05/07/2020 12:19:28 PM Referred By: REFERRED SELF Confirmed By:Steven Campbell
--- NOTE | 2020-05-07 12:23 | Neurology Consultation ---
Date of Consultation May 07, 2020 Assessment & Plan (1) Stroke: Acute ischemic stroke within the right internal capsule/caudate nucleus. Patient has very mild left facial weakness. No residual dysarthria or weakness of the left upper limb at this time. He presented outside of the window for administration of TPA. He did receive a loading dose of clopidogrel and an adult aspirin. His neurological deficits appear to be minimal and he has been neurologically stable since admission to the ICU. I agree with initiation of daily low-dose aspirin and clopidogrel 75 mg/day for the time being. However, I would discontinue clopidogrel after 3 weeks with plan to continue with daily low-dose aspirin monotherapy at that time. He will need a transthoracic echocardiogram. Continue to monitor for cardiac dysrhythmia/atrial fibrillation. If atrial fibrillation is identified would recommend anticoagulation instead of antiplatelet therapy in that context. Continue medical management of hypertension. Current blood pressure modestly elevated which is appropriate. Agree with initiation of atorvastatin as well. Follow-up with results of brain MRI. History of Present Illness Reason for Consultation: Stroke Requesting Physician: Raven Krishnamurthy PA-C Attending Physician: Catrina Loja MD History of Present Illness The patient is a 70-year-old male with a chief complaint of left facial droop and left upper extremity weakness. He reports that his symptoms actually began prior to going to bed last night at around 11 PM. He recalls having an episode of slurred speech prior to going to bed with associated weakness along the left side of the face. He then awoke between 2 and 3 AM and noticed that his left upper extremity was flaccid. He reports that he went back to sleep and awoke the following morning. His left upper extremity weakness had resolved although he continued to perceive some mild weakness along the left side of his face with associated slurred speech. He then had another episode of left upper extremity weakness that subsequently resolved. He complains of an associated low-grade frontal headache as well which he has been attributing to his sinuses. He was evaluated in the emergency department this morning at around 7:30 AM. The emergency department and admitting physician H&P are not complete at this time. The patient did not receive TPA as he was outside of the therapeutic window. He did receive a loading dose of clopidogrel, 300 mg, as well as an adult aspirin. He has a history of hypertension and takes lisinopril. His blood pressure has been modestly elevated. He does not have a history of diabetes mellitus or h yperlipidemia. He moved to the [facility] from [facility] earlier this year and has not established yet with a local primary care physician. He is the sole caregiver for his spouse who has advanced dementia. The patient's daughter was also present at the time of my assessment of this patient. He is a former smoker but quit in the . He is a retired police worker. Currently, he is sitting up in a bedside chair. He continues to report very subtle weakness along the left side of his face, no residual dysarthria or speech change. He complains of a low-grade frontal headache as above. He has not experienced a recurrence of his left upper extremity flaccid weakness. No difficulty with ambulating in the hospital room. No dizziness, syncope, or vertigo. No fevers, chills or myalgia. A CT of the head revealed a 1.6 cm hypodensity within the right internal capsule extending into the caudate nucleus, no hemorrhage. Findings consistent with an age-indeterminate infarct. CT angiography of the head and neck negative for hemodynamically significant stenosis. Imaging described in further detail below. Allergies Allergy/AdvReac Type Severity Reaction Status Date / Time No Known Allergies Allergy Unverified 05/07/20 08:27 Home Medications Home Medications Medication Instructions Recorded Confirmed Type cholecalciferol (vitamin D3) 50 mcg PO Q OTHER DAY 05/07/20 05/07/20 History [Vitamin D3] ibuprofen [Advil] 200 mg PO Q6H PRN 05/07/20 05/07/20 History lisinopril 5 mg PO QAM 05/07/20 05/07/20 History Patient History Medical History Hypertension Family History Mother Stroke Social History Preferred Language: Divehi Communication Ability: Effective Nailer Hand Required: No Beliefs That Will Affect Care: None Current Living Situation: Spouse current occupational status: retired Other Information That Helps Us Care for You: No Feels Safe at Home: Yes Safety Concerns: Feels Safe At This Time Smoking Status: Former smoker Hx Alcohol Use: Yes Alcohol type: wine Hx Substance Use: No Review of Systems Constitutional: no fever, no chills and no fatigue Eyes: no blind spots and no diplopia Ear, Nose, Mouth, Throat: no tinnitus and no hearing loss Respiratory: no cough and no dyspnea Cardiovascular: no chest pain and no palpitations Gastrointestinal: no nausea and no vomiting Genitourinary: no dysuria and no urinary incontinence Musculoskeletal: no neck pain and no myalgia Integumentary: no rash and no lesions Neurologic: as per Subjective / HPI and + headache(s); no dizziness and no syncope Psychiatric: no depression and no anxiety Hematologic / Lymphatic: no easy bleeding and no easy bruising Exam (Neuro) Constitutional: well developed and well nourished; no acute distress Eyes: normal visual porter by confrontation, PERRL, normal accommodation and EOM intact bilaterally; no fundoscopic abnormality, no nystagmus and no papilledema Cardiovascular: Vessels: normal carotid upstroke; no carotid bruit Neurologic: Oriented to:: Person, Place and Time Memory: Short Term Intact and Remote Intact Attention: Span Intact and Concentration Intact Language: Naming Objects and Repeating Phrases Speech Fluency: negative Dysarthria Speech Aphasia: negative Aphasia Fund of Knowledge: Current Events, Past History and Vocabulary Cranial Nerves: Normal II (Visual porter full to confrontation, visual acuity normal), III, IV, (Pupils equal round reactive to light and accommodation, eye movements normal), V (Facial sensation intact), VIII (Hearing intact), IX, X (Palate elevates to midline), XI (Shoulder shrug intact) and XII (Tongue protrudes to midline); Abnorm VII (There is mild left facial weakness noted) Motor Strength: Normal Lower Extremities and Normal Upper Extremities; negative Pronator Drift Motor Tone: Normal Lower Extremities and Normal Upper Extremities Muscle Bulk/Involuntary Movements: No Involuntary Movements; negative Muscle Atrophy Sensation: Light Touch Intact, Pain/Temperature Intact, Vibration Intact and Proprioception Intact Coordination: Normal; negative Limited Balance, Dysdiadochokinesia, Finger-Nose Abnormal and Heel-Barrera Abnormal Deep Tendon Reflexes: Rt Triceps: 2+, Lt Triceps: 2+, Rt Biceps: 2+, Lt Biceps: 2+, Rt Brachioradialis: 2+, Lt Brachioradialis: 2+, Rt Patellar: 2+, Lt Patellar: 2+, Rt Ankle: 2+ and Lt Ankle: 2+ Special Tests: negative Babinski Present Gait: Normal Station and Gait Results & Data ([facility]) Vital Signs (Past 12 Hours) Vital Signs Temp Pulse Pulse Resp BP BP Pulse Ox 05/07/20 10:46 36.9 C 82 16 145/73 H 95 05/07/20 09:06 91 H 18 156/84 H 99 05/07/20 08:32 79 18 158/88 H 98 05/07/20 08:00 90 18 162/83 H 99 05/07/20 07:30 36.8 C 84 18 142/89 H 98 Laboratory Results WBC 7.31, hemoglobin 14.5, hematocrit 42.9, platelet count 303, sodium 134, potassium 4.2, BUN 15, creatinine 1.09, glucose 110, calcium 9.1, magnesium 2.1, AST 12, ALT 18, troponin less than 0.015, triglycerides 92, cholesterol 166, LDL 99, VLDL 18, HDL 49, TSH 1.[address] of the head reveals a 1.6 cm hypodensity within the right internal capsule extending into the caudate nucleus consistent with an age-indeterminate/subacute ischemic infarct. No hemorrhage. A CT angiogram of the head is negative for thrombus, stenosis, or aneurysm. A CT angiogram of the neck is negative for thrombosis, dissection, occlusion or aneurysm. I reviewed the images as well as the radiologist's interpretation of these tests. Electrocardiogram reveals a normal sinus rhythm, 93 bpm. Coding Level of Care Code 21511 Initial Inpt Care Lvl 3 Diagnoses Stroke I63.9
[2020-05-07] MEDS: SODIUM CHLORIDE 0.9% 1000ML 1,000 ML IV SCH ×2 (14:27→23:16)
[2020-05-07] MEDS: FLUTICASONE PROPIONATE NA SPR 16 GM BTL SCH (19:00)
[2020-05-07] MEDS ORDERED: GADOBUTROL 65ML VIAL IV PRN (20:51)
[2020-05-08 06:04] LABS: Basophils # (auto) 0.02 K/uL (0-0.2); Basophils % (auto) 0.2 %; Eosinophils # (auto) 0.25 K/uL (0-0.5); Eosinophils % (auto) 2.8 %; Hematocrit (blood only) 44.7 % (42-52); Hemoglobin 14.4 g/dL (14.0-18.0); Immature Granulocytes # (auto) 0.02 K/uL (0.00-0.02); Immature Granulocytes % (auto) 0.2 %; Lymphocytes # (auto) 1.98 K/uL (1.2-3.4); Lymphocytes % (auto) 22.4 %; Mean Corpuscular Hemoglobin 29.6 pg (25-34); Mean Corpuscular Hgb Conc 32.2 g/dL (32-36); Mean Platelet Volume 10.1 fL (7.4-10.4); Monocytes % (auto) 5.6 %; Neutrophils # (auto) 6.08 K/uL (1.4-6.5); Neutrophils % (auto) 68.8 %; Platelet Count 307 K/uL (130-400); RDW Coefficient of Variation 13.2 % (11.5-14.5); RDW Standard Deviation 44.4 fL (36.4-46.3); Red Blood Count 4.86 M/uL (4.7-6.1); White Blood Count 8.85 K/uL (4.8-10.8)
[2020-05-08 06:18] LABS: INR 1.1 (0.9-1.1); Prothrombin Time 11.2 Seconds (9.0-12.0)
[2020-05-08 06:24] LABS: Estimated Average Glucose 128 mg/dl; Hemoglobin A1C 6.1 % (4.5-5.6)
[2020-05-08 06:53] LABS: BUN Creatinine Ratio 11.4 (10-20); Calcium 8.4 mg/dl (8.5-10.1); Creatinine Clr Calc Pharmacy 66.5 ml/min; Est GFR (African American) 90.8; Est GFR (Non-African American) 78.4; Potassium 4.1 mmol/L (3.5-5.1)
--- NOTE | 2020-05-08 07:33 | Magnetic Resonance Report ---
MRI OF THE BRAIN WITHOUT AND WITH IV CONTRAST CLINICAL HISTORY: Stroke. Left-sided facial weakness. Left upper extremity weakness. COMPARISON STUDY: Head CT and CTA of the head May 07, 2020. TECHNIQUE: Utilizing a 1.5 Rachel magnet and dedicated coil, multiplanar, multiecho imaging of the br ain was performed pre and postcontrast administration. IV administration of 7.5 mL of Gadavist contr ast was uneventful. FINDINGS: Note is made of a 1.9 cm focus of restricted diffusion within the right gibbs radiata exte nding into the internal capsule. This corresponds to the finding on head CT of May 07, 2020. No addit ional acute infarcts are noted. There is no hemorrhage. There is no mass effect. Ventricular system i s unremarkable. The basilar cisterns are patent. There are no extra-axial collections. No intracrania l mass or pathologic enhancement is identified. There is mild atrophy. A few white matter T2 hyperint ense foci suggest mild small vessel disease. Calvarial signal is normal. IMPRESSION: 1.9 cm acute infarct within the right gibbs radiata extending into the internal capsule. This corres ponds to the finding on head CT of May 07, 2020. No mass effect. No hemorrhage. ACT 112: Negative or not required by law. Electronically signed by: Hong Kim M.D. 05/08/2020 7:32 AM
[2020-05-08] MEDS ORDERED: ASPIRIN 81 MG ECTAB PO SCH (09:00)
[2020-05-08] MEDS ORDERED: ATORVASTATIN 40 MG TAB PO SCH (09:00)
[2020-05-08] MEDS ORDERED: CLOPIDOGREL BISULFATE 75 MG TAB PO SCH (09:00)
[2020-05-08] MEDS ORDERED: lisinopriL 5 MG TAB PO SCH (09:00)
[2020-05-08] MEDS ORDERED: CHOLECALCIFEROL 1,000 UNITS 25 MCG TAB PO SCH (09:00)
[2020-05-08] MEDS: SODIUM CHLORIDE 0.9% 1000ML 1,000 ML IV SCH (09:01)
[2020-05-08] MEDS: FLUTICASONE PROPIONATE NA SPR 16 GM BTL SCH (10:04)
--- NOTE | 2020-05-08 11:12 | Discharge Summary ---
Date of Service May 08, 2020 Admission HPI Per Admitting Provider 70 white male with PMHx significant for HTN on lisinopril presented to the emergency department with complaints of left facial droop, slurred speech and left arm weakness. He states that he recently moved to [place] from [place] on Dec 17, 2019 to be closer to family and for help with his who has been suffering from dementia for the past five years and has yet to be set up with a PCP locally secondary to current pandemic. He states that he had been feeling dizzy and light headed a week ago with associated headache/sinus pressure which he thought might be related to seasonal allergies and was going to call medical provider early next week. He states that he had checked his blood pressure at home and it was in the 130-140s systolically and 80-90s diastolically. He has had yearly check ups in [place] for lipid panels and is not on a statin currently. His daughter stated that patient was supposed to have company over but was not feeling up to it which was unusual. Patient states he went to bed as usual after he took an Advil product with a decongestant and when he woke up in the night he noticed his left arm hanging off the side of the bed but went back to sleep. He states when he woke up in the morning he noted left sided facial droop and patient and daughter state that he had difficulty with speech, slurring words. He notes that he did have some difficulty with speech the night before as well. He notes associated right jaw pain and possible swollen lymph nodes (history of lymph node removal in neck but denies cancer or tx for such). Speech has now returned to baseline but still with facial droop. Denies any difficulty swallowing or headache at this current time. Denies blurred vision, palpitations, history of afib, clotting/bleeding disorders. States he was a pretty active individual and golfed and exercised several days a week in [place] but does more light activity with his since moving her but does admit to some hiking last week at [place] and [place] [place]. Denies decreased exercise tolerance, shortness of breath, palpitations, abdominal pain, n/v/d, dysuria at this time. No known concerns for COVID-19 at this time or known exposure. Had previously been Strong family history for heart disease and stroke but not DM. Previous smoker but quit in 1972. Drinks 1-2 glasses of wine per night. ER Course: CBC unremarkable. BMP with slightly low sodium, 134. K 4.2. BUN 15. Cr 1.09. Glucose 110. Trop <0.015. INR 1.1. PTT 34.3 CT Head with 1.6 cm hypodensity R internal capsule extending into caudate nucleus, age inf infarct. CTA Head/Neck with age ind 1.7m infarct, no intraluminal thrombus or cutoff. No evidence for aneurysm, dissection or high- grade stenosis. EKG NSR 93bpm with non-specific T wave abnormality. Telestroke cart with recommendations to load with ASA, Plavix and to continue on DAPT and to continue with rest of stroke work-up. Principal Diagnosis Small right sided ischemic stroke, no residual deficits Discharge Exam Constitutional WD/WN, vitals as above Eyes PERRL, conjunctivae normal, anicteric sclerae ENMT external ear and nose normal, oropharynx normal Neck trachea midline, no thyromegaly Respiratory normal respiratory effort, lungs clear to auscultation Cardiovascular RRR, no murmur, no edema Gastrointestinal (Abdomen) normal bowel sounds, soft, nontender, no hepatosplenomegaly Musculoskeletal no cyanosis or clubbing, extremities motor strength 5/5 Skin no rashes, warm and dry Neurologic patellar DTR's 2+ bilat, sensation intact and PERRL, EOMI, accommodation nl, no face palsy, no dysarthria Psychiatric A+Ox3, euthymic affect Lymphatic no cervical or axillary lymphadenopathy Discharge Data Allergies Allergy/AdvReac Type Severity Reaction Status Date / Time No Known Allergies Allergy Unverified 05/07/20 08:27 Consultations 05/07/20 10:46 Consult Case Management - Discharge Planning Routine Consult Neurology Routine 05/07/20 13:40 Consult Health Information Management Routine Ordered Studies 05/07/20 07:[address] [CT head/brain wo con] Stat 05/07/20 07:38 CT angio head w con Stat CT angio neck with con Stat 05/07/20 16:42 MR brain wo/w con Urgent Hospital Course (1) Stroke: Risk factors for stroke include HTN, age. He also took Advil with a decongestant in it-perhaps he had vasoconstriction from the decongestant. CT angiogram of the head and neck are negative upon admission. CT with a 1.6 cm hypodensity within the right internal capsule extending to the caudate nucleus suggestive of an age-indeterminate infarct. MRI brain: 1.9 cm acute infarct within the right gibbs radiata extending into the internal capsule. This corresponds to the finding on head CT of May 07, 2020. No mass effect. No hemorrhage. no symptoms this morning discussed secondary stroke reduction with Dr. Johnson who evaluated patient in the morning aspirin 81mg daily and Plavix 75mg daily, can stop Plavix after 3 weeks Lipitor 40mg daily blood pressure control, continue Lisinopril 5mg daily HbA1c 6.1%, pre-diabetes, counseled patient on cutting back on carbohydrates, he says he eats a lot of them so there is room to cut back does not smoke no afib while here but he was here less than 24 hours arrange for 30 day Holter monitor to rule out paroxysmal afib follow up PCP in one week, neurology in 6-8 weeks (2) Hypertension: * Chronic. Has been on lisinopril 5mg PO daily as outpatient -- BP stable, follow up with PCP (3) Hyponatremia: * Mildly low at 134 * resolved (4) Sinus pressure: * Noted for the last 2 weeks. Question could be allergy related. His symptoms completely resolved last night he noticed after taking Advil with decongestant in it. Unfortunately, perhaps this contributed to his stroke as above. The visualized portions of the sinuses do not show any evidence of sinusitis * Advised no further decongestants * Trial of Flonase * If symptoms return, consider CT of the sinuses * follow up PCP Total Time Total Time Spent Total Time Spent (In Minutes): 35 minutes Total Time Includes: Examination of the Patient, Discharge Planning, Medication Reconciliation and Communication With Other Providers (Dr. Johnson) Discharge Plan Discharge Items Patient Disposition: Home - Self-Care Reason For Visit: STROKE Discharge Diagnosis: Small ischemic stroke Condition on Discharge: Good Goals: secondary stroke prevention with medications 30 day heart monitor to look for atrial fibrillation at home Activity: Resume your previous activity Non-emergency contact: Primary Care Provider Call non-emergency contact if: you have any medication questions and your symptoms worsen Follow-up/Referrals: Venkat Rodriguez MD [Physician] - 07/13/20 9:00 am (8 weeks) Serg Licona DO [Physician] - 05/16/20 9:00 am (Please, follow up at [facility] with Dr. Serg Licona on FridayMay 16 at 9:00 am. *Dr. Licona will be your new primary care provider. The office is located at [facility] in [place]. This is across the street from the [employer] entrance/exit. Please, call the office when you arrive in their parking lot and they will begin the registration process while you wait to see the doctor. They are doing this in an effort to keep the waiting room empty due to COVID 19. If you have any questions or need to change this appointment, call the office at [phone]. A CARDIAC EVEN MONITOR WILL BE MAILED TO YOUR HOME. THE KIT WILL CONTAIN EASY TO FOLLOW INSTRUCTIONS. THE RESULTS WILL BE SENT TO DR. SERG LICONA. ) Diet: Heart Healthy Addtl Attending Provider Instructions: Medications: - PLAVIX: 75mg daily for three weeks then stop - ASPIRIN: 81mg daily, take this indefinitely - LIPITOR: 40mg daily, this stabilizes plaques, prevents strokes in the future, take indefinitely Small right sided ischemic stroke, most likely etiology is small vessel clot that has since dissolved secondary stroke reduction - take antiplatelet medications, specifically aspirin 81mg daily and Plavix 75mg daily, stop the Plavix after 3 weeks - take Lipitor to lower LDL (99) and stabilize plaques to prevent strokes - blood pressure control, currently controlled on Lisinopril 5mg daily, follow up with PCP - HbA1c is 6.1%, this is consider pre-diabetes, please decrease intake of complex carbohydrates (breads, pastas, rice) and reduce simple sugars (sweets, soda etc) - there was no evidence of atrial fibrillation while here, but we will set you up with 30 day monitor to rule out paroxysmal atrial fibrillation as a potential stroke risk factor Risk Factors for Stroke: You can reduce your chances of stroke by working with your medical provider to adopt a healthy lifestyle. Some specific ways to lower your chance of stroke are: * If you are a smoker, now is the time to stop smoking cigarettes * If you are diabetic, improve the control of your blood sugars * Avoid excessive amounts of alcohol * Control high blood pressure * Lose weight if you are overweight * Be sure to lead an active lifestyle * Eat a healthy diet low in salt, cholesterol and fat You should know about other risk factors for stroke that you are unable to control. These include: * Age 55 years or older * Male gender * Certain racial groups: , or / * Family History of Stroke, Mini stroke or Heart Attack * Sickle Cell Disease Follow Up: It is important for you to keep your follow up appointments with your medical provider. Who to Call and When: Medical Emergencies: Call 911 immediately if you experience any of the following warning signs and symptoms of Stroke: * Sudden numbness or weakness of the face, arm or leg, especially on one side of the body * Sudden confusion, trouble speaking or understanding * Sudden trouble seeing in one or both eyes * Sudden trouble walking, dizziness, loss of balance or coordination * Sudden severe headache with no cause Do not delay calling 911 if you experience any warning signs or symptoms of a stroke. Delay in seeking medical attention may affect what treatments can be given to you. . Pending Studies at Discharge: No Stand-Alone Forms: Medications to Prevent Stroke, [facility], Smoking Cessation Medications and DC Order Prescriptions: New atorvastatin 40 mg Tablet 40 mg PO QAM 30 Days Qty: 30 RF: 3 clopidogrel 75 mg Tablet 75 mg PO QAM 21 Days Qty: 21 RF: 0 aspirin 81 mg Tablet,Delayed Release (Dr/Ec) 81 mg PO QAM 30 Days Qty: 30 RF: 0 Continued ibuprofen [Advil] 200 mg Tablet 200 mg PO Q6H PRN (Reason: Pain) RF: 0 lisinopril 5 mg Tablet 5 mg PO QAM RF: 0 cholecalciferol (vitamin D3) [Vitamin D3] 50 mcg (2,000 unit) Tablet 50 mcg PO Q OTHER DAY RF: 0 Discharge Orders: Discharge Order (Routine); Ordered 05/08/20 Ordered By: Ronni Sanford/Other Patient Handouts: Prediabetes, Controlling High Blood Pressure, Hypertension Stroke Link, Eating Heart-Healthy Foods, A1C Admission Data Admit Date/Time: 05/07/20 09:55 Attending Provider: Ronni Gerardo Admit Provider: Catrina Loja Primary Care Provider: PCP,NO Other Providers: Venkat Rodriguez Other Interventions: Discharge Summary Assessment (RN) Last Done: 05/08/20 11:29 DC Date/Time DO NOT enter until pt leaves facility: 05/08/20 12:50 Coding Level of Care Code D/C Day Management >30 mins Diagnoses Stroke I63.89 CVA mechanism: other Hypertension I10 Hyponatremia E87.1 Sinus pressure J34.89
--- NOTE | 2020-05-08 11:48 | Neurology Progress Note ---
Date of Service May 08, 2020 Assessment & Plan (1) Stroke: Acute ischemic stroke within the right internal capsule/caudate nucleus. Patient has very mild left facial weakness. No residual dysarthria or weakness of the left upper limb at this time. He presented outside of the window for ad ministration of TPA. He did receive a loading dose of clopidogrel and an adult aspirin. His neurological deficits appear to be minimal and he has been neurologically stable since admission to the ICU. I agree with initiation of daily low-dose aspirin and clopidogrel 75 mg/day for the time being. However, I would discontinue clopidogrel after 3 weeks with plan to continue with daily low-dose aspirin monotherapy at that time. He will need a transthoracic echocardiogram. Continue to monitor for cardiac dysrhythmia/atrial fibrillation. If atrial fibrillation is identified would recommend an ticoagulation instead of antiplatelet therapy in that context. Continue medical management of hypertension. Current blood pressure modestly elevated which is appropriate. Agree with initiation of atorvastatin as well. Follow-up with results of brain MRI. (2) Hypertension: Patient had acute ischemic stroke in the right internal capsule/caudate nucleus. His very mild left facial weakness is improved and he really has no other focal neurologic deficits, meningeal signs, or encephalopathy. His speech is normal. He has a history of hypertension but no diabetes, dyslipidemia, or cigarette smoking. Recommendations: 1. Continue 81 mg aspirin +70 5 mg clopidogrel for 3 weeks then discontinue aspirin stay on clopidogrel alone. 2. I see no need for high-dose statins in this patient given his lipid parameters but would continue atorvastatin 40 mg. 3. Follow up with Dr. Rodriguez as an outpatient. Overall, I spent a total of 25 minutes with this case including review of records, review of MRI films (with the patient at bedside) direct evaluation the patient bedside and discussion of the case with the patient and RN at bedside as well as Dr. Gerardo, including differential diagnosis and treatment options. Admission and Anticipated Discharge Date Admission Date: May 07, 2020 Subjective The patient believes his right side is getting a little bit better/stronger. He still has some dysarthria. His left side feels well. CBC and Chem profile were unremarkable. Total cholesterol was 166 and triglycerides 92. Hemoglobin A1c was 6.1. Blood pressure was 140/80 and he was afebrile. CT angiography of the head and neck was largely unremarkable. MRI of the brain showed a relatively small right internal capsule/gibbs radiata out a acute stroke. In addition, he had a few small, nonspecific old ischemic changes seen scattered white matter. I reviewed this MRI of the brain with the patient. Results & Data ([facility]) Vital Signs (Past 12 Hours) Vital Signs Temp Pulse Pulse Resp BP Pulse Ox 05/08/20 11:29 36.4 C L 71 18 140/80 96 05/08/20 08:00 79 05/08/20 07:53 36.4 C L 71 18 140/80 96 05/08/20 03:13 36.4 C L 71 16 99/63 L 98 Exam (Neuro) Physical Exam: The patient is awake and alert. Speech is without aphasia or dysarthria. Mood and affect are normal appropriate. Thought processes are intact with good long and short-term memory. Extraocular eye muscles are intact without nystagmus. Tongue is midline. He has a slight droop of the corner of mouth on the left but does move with voluntary smile. Coordination is normal in the arms with no tremor or ataxia. Strength is symmet rical in all 4 limbs. Gait is stable. PG Care Time/CCT Total # of Minutes Spent Total Time Spent with Patient: Total time spent is greater than 50% in coordination of care (as documented) at patient's floor/unit and/or counseling patient: Coding Level of Care Code 63893 Subseq Hosp Care Lvl 2 Diagnoses Stroke I63.89 CVA mechanism: other Hypertension I10 Time Spent (min) 25 (1) Stroke CVA mechanism: other Qualified Code(s): I63.89 - Other cerebral infarction
--- NOTE | 2020-05-08 12:51 | Pharmacy Report ---
Pharmacist Stroke Counseling - Date of Service May 08, 2020 - Scope: Pharmacy has been consulted to provide medication discharge counseling for this patient admitted with ischemic stroke as per the Pharmacist Discharge Counseling for Stroke Patients Protocol. - Medications on Discharge: Home Medications Medication Instructions Recorded Confirmed cholecalciferol (vitamin D3) 50 mcg PO Q OTHER DAY 05/07/20 05/07/20 [Vitamin D3] ibuprofen [Advil] 200 mg PO Q6H PRN 05/07/20 05/07/20 lisinopril 5 mg PO QAM 05/07/20 05/07/20 New Rx's Medication Instructions Recorded aspirin 81 mg PO QAM 30 Days #30 tab 05/08/20 atorvastatin 40 mg PO QAM 30 Days #30 tab 05/08/20 clopidogrel 75 mg PO QAM 21 Days #21 tab 05/08/20 - Action: The above medications, specifically ones for stroke treatment/prophylaxis, have been reviewed in detail with the patient prior to discharge. This includes indication, common adverse reactions, drug interactions, and medication administration. Medication counseling has been employed using the teach-back method to ensure understanding. - Outcome: The patient has demonstrated understanding of the medications. Additional comments: - Counseling was performed via telephone secondary to the COVID-19 pandemic - Patient was given ample time to have any/all questions answered - Patient understood to discontinue Clopidogrel following 21 days of therapy and continue aspirin indefinitely - Follow up appointments scheduled and discussed Thank you for allowing pharmacy to be involved in the care of this patient. Please call [phone] with any additional questions
--- NOTE | 2020-05-08 16:27 | XCELERA ---
[id number]
== END 2020-05-08 12:50 | disposition home or self-care (01) | DRG 65 ==
LOC: ED 07:24 → SUATTDRO 09:55 → 1E 09:55 → 2S 21:43